=== PATIENT | female | born 1975 | race Caucasian/White ===

== ENCOUNTER 2016-10-05 13:10 | Emergency (ER) | payer OTHER ==
[~2016-10-05] VITALS: Ht 172.7 cm; Wt 94.7 kg
[~2016-10-05 13:10] MED LIST: ATENOLOL50 M1 NG; AUGMENTIN875 MG PO; MEDROL DOSEPAK4 MG PO; PROAIR RESPICL90 MCG IH; ROBITUSSIN DM118 ML PO; TOPAMAX50 MG PO; VALTREX50 MG/ML PO; ZOMIG5 M1 NS; ZOMIG5 MG PO; [UNRECOGNIZED DRUG - OTHER] PO
[2016-10-05] MEDS ORDERED: FLEXERIL10 MG PO (14:09)
[2016-10-05] MEDS ORDERED: NAPROXEN500 MG PO (14:09)
[2016-10-05] MEDS ORDERED: PREDNISONE20 MG PO (14:09)
[2016-10-05 14:20] VITALS: BP 145/87
== END 2016-10-05 14:21 | disposition home or self-care (01) ==
LOC: EME 13:10
DX: M54.12 Radiculopathy, cervical region (principal); K58.9 Irritable bowel syndrome, unspecified
CPT/HCPCS: 99281; 99283; J1885